=== PATIENT | male | born 1960 | race Caucasian/White ===

== ENCOUNTER 2020-09-05 16:24 | Inpatient (IN) | payer BC ==
[2020-09-05] VITALS (12 sets, daily range): BP systolic 97–142; BP diastolic 45–69
[~2020-09-05] VITALS: Ht 177.8 cm; Wt 113.6 kg
[~2020-09-05 16:24] MED LIST: MORPHINE SULFATE 4 MG/ML VIAL. IV PRN
[2020-09-05] MEDS ORDERED: ONDANSETRON PF 4 MG/2 ML VIAL. IVP ONE (16:45)
[2020-09-05] MEDS ORDERED: ASPIRIN 325 MG TABLET PO ONE (16:45)
[2020-09-05] MEDS ORDERED: MORPHINE SULFATE 4 MG/ML VIAL. IV ONE (16:45)
[2020-09-05] MEDS ORDERED: HEPARIN for IV BOLUS 10,000 UNIT/10 ML VIAL. IV ONE ×2 (16:45→18:15)
[2020-09-05 16:52] LABS: BASO % 0 % (0-3); EOS # 0.4 x10^3/uL (0.0-0.7); EOS % 4 % (0-3); HEMATOCRIT 45.4 % (39.0-53.0); HEMOGLOBIN 15.2 g/dL (13.0-17.5); LYMPH # 2.4 x10^3/uL (1.0-4.8); LYMPH % 22 % (24-48); MEAN CORPUSCULAR HEMOGLOBIN 31 pg (25-35); MEAN CORPUSCULAR HGB CONC 33 g/dL (31-37); MEAN CORPUSCULAR VOLUME 93 fL (79-100); MONO # 0.8 x10^3/uL (0.0-1.1); MONO % 7 % (0-9); NEUT # 7.6 x10^3/uL (1.8-7.7); NEUT % 68 % (31-73); PLATELET COUNT 234 x10^3/uL (140-400); RED BLOOD COUNT 4.91 x10^6/uL (4.30-5.70); RED CELL DISTRIBUTION WIDTH 13.4 % (11.5-14.5); WHITE BLOOD COUNT 11.2 x10^3/uL (4.0-11.0)
--- NOTE | 2020-09-05 16:55 | PHYS DOC ---
Past Medical History Past Medical History: High Cholesterol, Other Additional Past Medical Histor: PSORIASIS Past Surgical History: No Surgical History Smoking Status: Current Every Day Smoker Alcohol Use: Rarely General Adult EDM: Chief Complaint: CHEST PAIN HPI: HPI: Patient is a 60 year old male who arrives with chief complaint of chest pain. Patient has had "indigestion" for last couple days. Today around 2:30 the pain got more severe. Patient had episodes of diaphoresis and chest heaviness that radiates to his arm. Patient had associated nausea with shortness of breath. Pain is described as a pressure and heaviness and currently 7 out of 10 in severity. Patient's was diagnosed with COVID-19 a few days ago the patient had some myalgias and back pain and has a chronic cough. Patient states he felt like he may have had a fever earlier today when he was having diaphoresis. Review of Systems: Review of Systems: Constitutional: Reports possible fever earlier today Eyes: Denies change in visual acuity. [] HENT: Has had some mild congestion Respiratory: Patient has some chronic cough and worsening shortness of breath today Cardiovascular: Patient complains of chest pain but no edema. [] GI: Denies abdominal pain, , bloody stools or diarrhea. [] Patient's had nausea today : Denies dysuria. [] Musculoskeletal: Patient complains of back pain Integument: Denies rash. [] Neurologic: Denies headache, focal weakness or sensory changes. [] Endocrine: Denies polyuria or polydipsia. [] Lymphatic: Denies swollen glands. [] Psychiatric: Denies depression or anxiety. [] Heart Score: HEART Score for Chest Pain: HEART Score for Chest Pain Response (Comments) Value History Highly Suspicious [address] Depression 2 Age >45 - < 65 1 Risk Factors 1 or 2 Risk Factors 1 Troponin >1-<3x Normal Limit 1 Total 7 Risk Factors: Risk Factors: DM, Current or recent (<one month) smoker, HTN, HLP, family history of CAD, obesity. Risk Scores: Score 0 - 3: 2.5% MACE over next 6 weeks - Discharge Home Score 4 - 6: 20.3% MACE over next 6 weeks - Admit for Clinical Observation Score 7 - 10: 72.7% MACE over next 6 weeks - Early Invasive Strategies Current Medications: Current Medications Medications (Trade) Dose Ordered Sig/Sameera Start Time Stop Time Status Last Admin Dose Admin Aspirin (Sunitha Aspirin) 325 mg 1X ONCE 09/05/20 16:45 09/05/20 16:46 DC Heparin Sodium (Porcine) (Heparin Sodium) 4,000 unit 1X ONCE 09/05/20 16:45 09/05/20 16:46 DC Morphine Sulfate (Morphine Sulfate) 4 mg 1X ONCE 09/05/20 16:45 09/05/20 16:46 DC Ondansetron HCl (Zofran) 4 mg 1X ONCE 09/05/20 16:45 09/05/20 16:46 DC Allergies: Allergies: Allergies Coded Allergies Type Severity Reaction Last Updated Verified No Known Drug Allergies 09/05/20 No Physical Exam: PE: Constitutional: Well developed, well nourished, mild distress HENT: Normocephalic, atraumatic, bilateral external ears normal, oropharynx moist, no oral exudates, nose normal. [] Eyes: PERRLA, EOMI, conjunctiva normal, no discharge. [] Neck: Normal range of motion, no tenderness, supple, no stridor. [] Cardiovascular: Bradycardic peripheral pulses are symmetric, cap refills less than 2 seconds Lungs & Thorax: Diminished breath sounds bilaterally Abdomen:, soft, no tenderness, no masses, no pulsatile masses. [] Skin: Mildly pale slight diaphoresis, psoriatic lesions of bilateral knees Back: No tenderness, no CVA tenderness. [] Extremities: No tenderness, no cyanosis, no clubbing, ROM intact, no edema. [] Neurologic: Alert and oriented X 3, normal motor function, normal sensory function, no focal deficits noted. [] Psychologic: Affect normal, judgement normal, mood normal. [] Current Patient Data: Labs: Laboratory Tests Test 09/05/20 16:40 09/05/20 16:46 White Blood Count 11.2 x10^3/uL Red Blood Count 4.91 x10^6/uL Hemoglobin 15.2 g/dL Hematocrit 45.4 % Mean Corpuscular Volume 93 fL Mean Corpuscular Hemoglobin 31 pg Mean Corpuscular Hemoglobin Concent 33 g/dL Red Cell Distribution Width 13.4 % Platelet Count 234 x10^3/uL Neutrophils (%) (Auto) 68 % Lymphocytes (%) (Auto) 22 % Monocytes (%) (Auto) 7 % Eosinophils (%) (Auto) 4 % Basophils (%) (Auto) 0 % Neutrophils # (Auto) 7.6 x10^3/uL Lymphocytes # (Auto) 2.4 x10^3/uL Monocytes # (Auto) 0.8 x10^3/uL Eosinophils # (Auto) 0.4 x10^3/uL Basophils # (Auto) 0.0 x10^3/uL Prothrombin Time 12.5 SEC Prothromb Time International Ratio 1.0 Activated Partial Thromboplast Time 29 SEC Sodium Level 140 mmol/L Potassium Level 4.0 mmol/L Chloride Level 104 mmol/L Carbon Dioxide Level 28 mmol/L Anion Gap 8 Blood Urea Nitrogen 19 mg/dL Creatinine 0.9 mg/dL Estimated GFR (Cockcroft-Gault) 85.5 BUN/Creatinine Ratio 21 Glucose Level 125 mg/dL Calcium Level 9.2 mg/dL Total Bilirubin 0.3 mg/dL Aspartate Amino Transf (AST/SGOT) 19 U/L Alanine Aminotransferase (ALT/SGPT) 25 U/L Alkaline Phosphatase 103 U/L Troponin I Quantitative 0.091 ng/mL [id number]-[id number]-Type Natriuretic Peptide 76 pg/mL Total Protein 7.1 g/dL Albumin 3.6 g/dL Albumin/Globulin Ratio 1.0 SARS-CoV-2 Antigen (Rapid) Negative Bedside Troponin I 0.06 ng/ml Current Medications Medications (Trade) Dose Ordered Sig/Sameera Route PRN Reason Start Time Stop Time Status Last Admin Dose Admin Aspirin (Sunitha Aspirin) 325 mg 1X ONCE PO 09/05/20 16:45 09/05/20 16:46 DC 09/05/20 16:58 Heparin Sodium (Porcine) (Heparin Sodium) 4,000 unit 1X ONCE IV 09/05/20 16:45 09/05/20 16:46 DC 09/05/20 16:59 Morphine Sulfate (Morphine Sulfate) 4 mg 1X ONCE IV 09/05/20 16:45 09/05/20 17:03 DC Ondansetron HCl (Zofran) 4 mg 1X ONCE IVP 09/05/20 16:45 09/05/20 16:46 DC 09/05/20 16:58 Ondansetron HCl (Zofran) 4 mg PRN Q8HRS PRN IV NAUSEA/VOMITING 09/05/20 17:00 09/06/20 16:59 Vital Signs: Vital Signs Date Time Temp Pulse Resp B/P (MAP) Pulse Ox O2 Delivery O2 Flow Rate FiO2 09/05/20 16:32 97.8 54 16 120/65 (83) 94 Room Air 97.8 EKG: EKG: [] EKG interpreted by me sinus bradycardia with a rate of 51 normal axis wide QRS with ST elevations in anterior leads with reciprocal changes in the precordial leads consistent with inferior NH QTC of 461 Radiology/Procedures: Radiology/Procedures: [] Chest x-ray interpretation pending at time of disposition I reviewed the films follow clinically some increased interstitial markings Course & Med Decision Making: Course & Med Decision Making Pertinent Labs and Imaging studies reviewed. (See chart for details) [] 60-year-old male presents with symptoms concerning for acute myocardial infarction. EKG to me at 1638. Code STEMI activated at that time. I discussed the case with at approximately 1640 who agrees with plan. Dba Manager has been activated. Patient has aspirin and heparin bolus ordered. 5:06 PM I notified the patient's blood pressures in the 70s, a liter of normal saline boluses been ordered for his inferior NH. 60-year-old male presents with chest pain and EKG consistent with myocardial infarction. STEMI was activated. Patient also has some Covid symptoms with a known Covid exposures weeks ago. A stat Covid has been ordered. I discussed the case with Dr. Jim who will admit patient Critical care time was [35] minutes exclusive of procedures. Critical care time was [35] minutes which includes time at bedside, spent in discussion of patient's care with specialist and/or family members, with interpretation of laboratory and/or radiological studies and is exclusive of procedures. Critical condition: Inferior STEMI Critical interventions: Aspirin, activation Dba Manager, heparin, admission to the ICU 5:12 PM: Dr. Rodriguez in the ER for evaluation 5:20 PM: Dba Manager in the ER to take patient. Zuri Disclaimer: Zuri Disclaimer: This electronic medical record was generated, in whole or in part, using a voice recognition dictation system. Departure Departure Impression: Primary Impression: ST elevation myocardial infarction (STEMI) of inferior wall Additional Impressions: Chest pain Suspected COVID-19 virus infection Disposition: ADMITTED INPT THIS HOSP Admitting Physician: CHARLETTE wilkins) Condition: CRITICAL TYLER WILLS MD Sep 05, 2020 16:55
[2020-09-05 16:59] LABS: CALCIUM 9.2 mg/dL (8.5-10.1); CREATININE 0.9 mg/dL (0.7-1.3); GFR 85.5
[2020-09-05 17:00] LABS: PROTHROMBIN TIME PATIENT 12.5 SEC (11.7-14.0)
[2020-09-05] MEDS ORDERED: ONDANSETRON PF 4 MG/2 ML VIAL. IV PRN (17:00)
[2020-09-05 17:04] LABS: ALBUMIN 3.6 g/dL (3.4-5.0); TOTAL BILIRUBIN 0.3 mg/dL (0.2-1.0); TOTAL PROTEIN 7.1 g/dL (6.4-8.2)
[2020-09-05] MEDS ORDERED: LIDOCAINE 1% PF 2 ML VIAL. ONE (17:07)
[2020-09-05] MEDS ORDERED: IODIXANOL 320 MG/ML 100 ML VIAL. ONE ×2 (17:07→17:59)
[2020-09-05] MEDS ORDERED: HEPARIN for ARTERIAL LINE 1,500 ML ONE (17:07)
[2020-09-05] MEDS ORDERED: TIROFIBAN 5MG -0.9% NS 100 ML IV ONE (17:12)
[2020-09-05] MEDS ORDERED: MIDAZOLAM HCL/PF 2 MG/2 ML VIAL. ONE (17:12)
[2020-09-05] MEDS ORDERED: fentaNYL PF VIAL 100 MCG/2 ML VIAL ONE (17:12)
[2020-09-05] MEDS ORDERED: VERAPAMIL 5 MG/2 ML VIAL. ONE (17:13)
[2020-09-05] MEDS ORDERED: NITROGLYCERIN 200 MCG/2 ML SYRINGE FOR CATH/VASC LAB. ONE ×2 (17:13→18:01)
[2020-09-05] MEDS ORDERED: HEPARIN for IV BOLUS 10,000 UNIT/10 ML VIAL. ONE (17:13)
[2020-09-05] MEDS ORDERED: IV NORMAL SALINE 1000ML BAG 1,000 ML IV ONE (17:15)
[2020-09-05] MEDS ORDERED: fentaNYL PF VIAL 100 MCG/2 ML VIAL IVP ONE (17:15)
[2020-09-05] MEDS ORDERED: ATROPINE 0.5 MG/5 ML DISP.SYRINGE. ONE ×2 (17:36→18:00)
[2020-09-05] MEDS ORDERED: PHENYLEPHRINE in 0.9% NACL PF 1 MG/10 ML SYRINGE. IV ONE ×2 (17:36→18:00)
--- NOTE | 2020-09-05 17:50 | RAD ---
Exam: Chest one view INDICATION: Covid, STEMI TECHNIQUE: Frontal view of the chest Comparisons: None FINDINGS: Heart is mildly enlarged. Pulmonary vessels are within normal limits. Hazy opacities lungs bilaterally. No pleural effusion. IMPRESSION: Findings which may relate to mild pulmonary edema or atypical infectious process. Electronically signed by: Ryan Washington MD (09/05/2020 5:48 PM) HELEN
[2020-09-05] MEDS ORDERED: ATROPINE 0.5 MG/5 ML DISP.SYRINGE. IV ONE (18:00)
[2020-09-05] MEDS ORDERED: PRASUGREL 10 MG TABLET. PO ONE (18:00)
[2020-09-05] MEDS ORDERED: PRASUGREL 10 MG TABLET. ONE (18:00)
[2020-09-05] MEDS ORDERED: VERAPAMIL 5 MG/2 ML VIAL. IART ONE (18:00)
[2020-09-05] MEDS ORDERED: MIDAZOLAM HCL/PF 2 MG/2 ML VIAL. IV ONE (18:00)
[2020-09-05] MEDS ORDERED: NITROGLYCERIN 200 MCG/2 ML SYRINGE FOR CATH/VASC LAB. ICAR ONE (18:00)
[2020-09-05] MEDS ORDERED: fentaNYL PF VIAL 100 MCG/2 ML VIAL IV ONE (18:00)
[2020-09-05] MEDS ORDERED: HEPARIN for IV BOLUS 10,000 UNIT/10 ML VIAL. IART ONE (18:00)
[2020-09-05] MEDS ORDERED: LIDOCAINE 1% PF 2 ML VIAL. INJ ONE (18:00)
[2020-09-05] MEDS ORDERED: NITROGLYCERIN 200 MCG/2 ML SYRINGE FOR CATH/VASC LAB. IART ONE (18:00)
--- NOTE | 2020-09-05 18:32 | NUR ---
Report from Gisella in laboratory phlebotomist. Patient had distal RCA occlusion which was stented. 0.5mg atropine given in laboratory phlebotomist for low HR and neosynephrine given for low BP. Dopamine gtt infusin at 5 mcg. Aggrastat started in laboratory phlebotomist at 1745 running at 19.5 and will run for 18 hours. R Wrist TR band in place with 9 mls fluid; hemostatis obtained at 1745.
[2020-09-05] MEDS: TIROFIBAN 5MG -0.9% NS 100 ML IV PRN ×2 (18:37→19:15)
--- NOTE | 2020-09-05 18:38 | PDOC2 ---
CARDIOLOGY CONSULT NOTE DATE OF SERVICE: DATE: 09/05/20 TIME: 18:33 CHIEF COMPLAINT: Chest pain HPI: 60-year-old male with a prior history of hypertension, tobacco abuse, obesity who presents to the hospital in the setting of worsening epigastric pain. Initial EKG revealed significant ST elevations and therefore the cardiac catheterization team was activated. Prior to presenting to the hospital the patient was in his usual state of health. No other prior cardiac history. PMHX: As noted above SOCHX: Positive for tobacco abuse. He is . 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 FAMHX: Noncontributory CURRENT MEDS: Current Medications Medications (Trade) Dose Ordered Sig/Sameera Route PRN Reason Start Time Stop Time Status Last Admin Dose Admin Aspirin (Sunitha Aspirin) 325 mg 1X ONCE PO 09/05/20 16:45 09/05/20 16:46 DC 09/05/20 16:58 Heparin Sodium (Porcine) (Heparin Sodium) 4,000 unit 1X ONCE IV 09/05/20 16:45 09/05/20 16:46 DC 09/05/20 16:59 Ondansetron HCl (Zofran) 4 mg 1X ONCE IVP 09/05/20 16:45 09/05/20 16:46 DC 09/05/20 16:58 Sodium Chloride 1,000 ml @ 1,000 mls/hr 1X ONCE IV 09/05/20 17:15 09/05/20 18:14 DC 09/05/20 17:05 ALLERGIES: Allergies Coded Allergies Type Severity Reaction Last Updated Verified No Known Drug Allergies 09/05/20 No ROS: Negative unless otherwise mentioned above in HPI PHYSICAL EXAM: Vital Signs/I&O: Vital Signs Date Time Temp Pulse Resp B/P (MAP) Pulse Ox O2 Delivery O2 Flow Rate FiO2 09/05/20 17:18 44 121/61 (81) 99 Nasal Cannula 4.0 09/05/20 17:04 11 09/05/20 16:32 97.8 97.8 Physical Exam: The patient appeared well nourished and normally developed. Head exam is unremarkable. No scleral icterus or corneal arcus noted. Neck is without jugular venous distension, thyromegaly, or carotid bruits. Carotid upstrokes are brisk bilaterally. Lungs are clear to auscultation and percussion. Cardiac exam reveals the PMI to be normally sized and situated. Rhythm is regular. First and second heart sounds normal. No murmurs, rubs or gallops. Abdominal exam reveals normal bowel sounds, no masses, no organomegaly and no aortic enlargement. Extremities are nonedematous and both femoral and pedal pulses are normal. Msk: No traumua Neuro: No focal deficits DIAGNOSTIC TESTING: EKG revealed [address] segment elevation Cardiac enzymes were within normal limits Initial rapid Covid test was negative Hemoglobin, platelets, creatinine within normal limits Chest x-ray is notable for bilateral hazy infiltrates Cardiac catheterization demonstrated two-vessel coronary artery disease with the culprit lesion being the 100% occlusion of the distal RCA. He underwent succ essful PCI. LV systolic function approximately 45% with basal and diaphragmatic inferior wall akinesis. ASSESSMENT: 1. Inferior posterior STEMI 2. Hypertension 3. Tobacco abuse PLAN: 1. Patient underwent successful primary PCI of the distal RCA with implantation of a 5.0 x 22 mm resolute drug-eluting stent. 2. Continue aspirin 81 mg daily, prasugrel 10 mg daily, atorvastatin 40 mg daily and blood pressure management as necessary. 3. Cardiac rehab referral will be made. 4. Await Covid PCR testing. Admit to ICU monitor for next 36 hours. Case discussed with family. Thank you for this consultation. HUGO GALLEGOS MD Sep 05, 2020 18:38
--- NOTE | 2020-09-05 18:41 | PDOC1 ---
History and Physical Date of Service: DOS: DATE: 09/05/20 TIME: 18:38 Chief Complaint: Chief Complain: chest pain History of Present Illness: HPI: Patient is a 60-year-old male with no significant past medical history who presents with chest pain. He actually describes the chest pain as indigestion for the last couple days and today around 230 it got more severe. Associated symptoms included diaphoresis and chest pressure that radiated to the arm associated with nausea and some shortness of breath. Pain is 7 out of 10 in severity. 5:12 PM: Dr. Rodriguez in the ER for evaluation 5:20 PM: Emergency Room Clinician in the ER to take patient. Past Medical/Surgical History: PMH/PSH: Past Medical History: High Cholesterol, PSORIASIS Past Surgical History: None Allergies: Allergies: Coded Allergies: No Known Drug Allergies (Unverified , 09/05/20) Family History: Family History: Reviewed and no relevant findings Social History: Social History: Smoking Status: Current Every Day Smoker Alcohol Use: Rarely Current Medications: Current Medications Current Medications Aspirin (Sunitha Aspirin) 325 mg 1X ONCE PO Last administered on 09/05/20at 16:58; Start 09/05/20 at 16:45; Stop 09/05/20 at 16:46; Status DC Heparin Sodium (Porcine) (Heparin Sodium) 4,000 unit 1X ONCE IV Last administered on 09/05/20at 16:59; Start 09/05/20 at 16:45; Stop 09/05/20 at 16:46; Status DC Morphine Sulfate (Morphine Sulfate) 4 mg 1X ONCE IV ; Start 09/05/20 at 16:45; Stop 09/05/20 at 17:03; Status DC Ondansetron HCl (Zofran) 4 mg 1X ONCE IVP Last administered on 09/05/20at 16:58; Start 09/05/20 at 16:45; Stop 09/05/20 at 16:46; Status DC Ondansetron HCl (Zofran) 4 mg PRN Q8HRS PRN IV NAUSEA/VOMITING; Start 09/05/20 at 17:00; Stop 09/06/20 at 16:59 Fentanyl Citrate (Fentanyl 2ml Vial) 50 mcg 1X ONCE IVP ; Start 09/05/20 at 17:15; Stop 09/05/20 at 17:16; Status DC Iodixanol (Visipaque 320) 100 ml STK-MED ONCE .ROUTE ; Start 09/05/20 at 17:07; Stop 09/05/20 at 17:07; Status DC Lidocaine HCl (Xylocaine-Mpf 1% 2ml Vial) 2 ml STK-MED ONCE .ROUTE ; Start 09/05/20 at 17:07; Stop 09/05/20 at 17:07; Status DC Sodium Chloride 1,000 ml @ 1,000 mls/hr 1X ONCE IV Last administered on 09/05/20at 17:05; Start 09/05/20 at 17:15; Stop 09/05/20 at 18:14; Status DC Heparin Sodium/ Sodium Chloride 1,500 ml @ As Directed STK-MED ONCE .ROUTE ; Start 09/05/20 at 17:07; Stop 09/05/20 at 17:07; Status DC Fentanyl Citrate (Fentanyl 2ml Vial) 100 mcg STK-MED ONCE .ROUTE ; Start 09/05/20 at 17:12; Stop 09/05/20 at 17:12; Status DC Midazolam HCl (Versed) 2 mg STK-MED ONCE .ROUTE ; Start 09/05/20 at 17:12; Stop 09/05/20 at 17:13; Status DC Tirofiban/Sodium Chloride 100 ml @ As Directed STK-MED ONCE IV ; Start 09/05/20 at 17:12; Stop 09/05/20 at 17:13; Status DC Heparin Sodium (Porcine) (Heparin Sodium) 10,000 unit STK-MED ONCE .ROUTE ; Start 09/05/20 at 17:13; Stop 09/05/20 at 17:13; Status DC Verapamil HCl (Verapamil) 5 mg STK-MED ONCE .ROUTE ; Start 09/05/20 at 17:13; Stop 09/05/20 at 17:14; Status DC Nitroglycerin (Nitroglycerin) 200 mcg STK-MED ONCE .ROUTE ; Start 09/05/20 at 17:13; Stop 09/05/20 at 17:14; Status DC Phenylephrine HCl (PHENYLEPHRINE in 0.9% NACL PF) 1 mg STK-MED ONCE IV ; Start 09/05/20 at 17:36; Stop 09/05/20 at 17:36; Status DC Atropine Sulfate (ATROPINE 0.5mg SYRINGE) 0.5 mg STK-MED ONCE .ROUTE ; Start 09/05/20 at 17:36; Stop 09/05/20 at 17:36; Status DC Nitroglycerin (Nitroglycerin) 200 mcg 1X ONCE IART ; Start 09/05/20 at 18:00; Stop 09/05/20 at 18:04; Status DC Verapamil HCl (Verapamil) 2.5 mg 1X ONCE IART ; Start 09/05/20 at 18:00; Stop 09/05/20 at 18:04; Status DC Heparin Sodium (Porcine) (Heparin Sodium) 2,500 unit 1X ONCE IART ; Start 09/05/20 at 18:00; Stop 09/05/20 at 18:04; Status DC Heparin Sodium/ Sodium Chloride (HEPARIN for ARTERIAL LINE FLUSH) 1,000 unit 1X ONCE IART ; Start 09/05/20 at 18:00; Stop 09/05/20 at 18:04; Status DC Heparin Sodium/ Sodium Chloride (HEPARIN for ARTERIAL LINE FLUSH) 1,000 unit 1X ONCE IART ; Start 09/05/20 at 18:00; Stop 09/05/20 at 18:04; Status DC Midazolam HCl (Versed) 2 mg 1X ONCE IV ; Start 09/05/20 at 18:00; Stop 09/05/20 at 18:04; Status DC Fentanyl Citrate (Fentanyl 2ml Vial) 100 mcg 1X ONCE IV ; Start 09/05/20 at 18:00; Stop 09/05/20 at 18:04; Status DC Atropine Sulfate (ATROPINE 0.5mg SYRINGE) 0.5 mg 1X ONCE IV ; Start 09/05/20 at 18:00; Stop 09/05/20 at 18:04; Status DC Phenylephrine HCl (PHENYLEPHRINE in 0.9% NACL PF) 0.1 mg 1X ONCE IV ; Start 09/05/20 at 18:00; Stop 09/05/20 at 18:04; Status DC Tirofiban/Sodium Chloride 100 ml @ 0 mls/hr CONT PRN IV PER PROTOCOL; Start 09/05/20 at 18:00; Stop 09/06/20 at 11:59 Lidocaine HCl (Xylocaine-Mpf 1% 2ml Vial) 2 ml 1X ONCE INJ ; Start 09/05/20 at 18:00; Stop 09/05/20 at 18:04; Status DC Iodixanol (Visipaque 320) 100 ml STK-MED ONCE .ROUTE ; Start 09/05/20 at 17:59; Stop 09/05/20 at 17:59; Status DC Prasugrel (Effient) 10 mg STK-MED ONCE .ROUTE ; Start 09/05/20 at 18:00; Stop 09/05/20 at 18:00; Status DC Nitroglycerin (Nitroglycerin) 200 mcg 1X ONCE ICAR ; Start 09/05/20 at 18:00; Stop 09/05/20 at 18:06; Status DC Prasugrel (Effient) 60 mg 1X ONCE PO ; Start 09/05/20 at 18:00; Stop 09/05/20 at 18:06; Status DC Nitroglycerin (Nitroglycerin) 200 mcg STK-MED ONCE .ROUTE ; Start 09/05/20 at 18:01; Stop 09/05/20 at 18:02; Status DC Dopamine HCl/ Dextrose 250 ml @ As Directed STK-MED ONCE IV ; Start 09/05/20 at 18:15; Stop 09/05/20 at 18:15; Status DC Dopamine HCl/ Dextrose 250 ml @ 20.363 mls/ hr CONT PRN IV SEE I/O RECORD; Start 09/05/20 at 18:30 ROS: Review of Systems Review of System REVIEW OF SYSTEMS: GENERAL: Denies weakness SKIN: No bruising, hair changes or rashes. EYES: No blurred, double or loss of vision. NOSE AND THROAT: No history of nosebleeds, hoarseness or sore throat. HEART: No history of palpitations, chest pain or shortness of breath on exertion. LUNGS: Denies cough, hemoptysis, wheezing or shortness of breath. GASTROINTESTINAL: Denies changes in appetite, nausea, vomiting, diarrhea or constipation. GENITOURINARY: No history of frequency, urgency, hesitancy or nocturia. NEUROLOGIC: Denies history of numbness, tingling, or tremor. PSYCHIATRIC: No history of panic, anxiety or depression. ENDOCRINE: No history of heat or cold intolerance, polyuria or polydipsia. EXTREMITIES: Denies joint pain, pain on walking or stiffness. Physical Exam: Vital Signs: Vital Signs Date Time Temp Pulse Resp B/P (MAP) Pulse Ox O2 Delivery O2 Flow Rate FiO2 09/05/20 17:18 44 121/61 (81) 99 Nasal Cannula 4.0 09/05/20 17:04 11 09/05/20 16:32 97.8 97.8 Physcial Exam: GEN: No apparent distress. Alert and oriented HEENT: Normal cephalic, atraumatic, external auditory canals are patent EYES: Extraocular muscles are intact, pupil are equally round and reactive to light and accommodation MUSCULOSKELETAL: Well developed , well nourished, good range of motion ENDOCRINE: No thyromegaly was palpated LYMPHATICS: No cervical chain or axillary nodes were noted HEMATOPOIETIC: No bruising NECK: Supple, no JVD, no thyromegaly was noted LUNGS: Clear to auscultation in all lung wood without rhonchi or wheezing HEART: RRR, S!, S2 present. Peripheral pulses intact, no obvious murmurs noted ABDOMEN: Soft, nontender. Positive bowel sounds, no organomegaly, normal bowel sounds EXTREMITIES: Without clubbing, cyanosis, or edema. Pedal pulses intact. Negative Homans sign NEUROLOGIC: Normal speech and tone. A&O x 3, moves all extremities, no obvious focal deficits PSYCHIATRIC: Normal affect, normal mood. Stable SKIN: No ulcerations or rashes, good skin turgor, no jaundice VASCULAR: Good capillary refill, neurovascular bundle appears to be intact Labs: Labs: Laboratory Tests Test 09/05/20 16:40 09/05/20 16:46 White Blood Count 11.2 x10^3/uL (4.0-11.0) Red Blood Count 4.91 x10^6/uL (4.30-5.70) Hemoglobin 15.2 g/dL (13.0-17.5) Hematocrit 45.4 % (39.0-53.0) Mean Corpuscular Volume 93 fL (79-100) Mean Corpuscular Hemoglobin 31 pg (25-35) Mean Corpuscular Hemoglobin Concent 33 g/dL (31-37) Red Cell Distribution Width 13.4 % (11.5-14.5) Platelet Count 234 x10^3/uL (140-400) Neutrophils (%) (Auto) 68 % (31-73) Lymphocytes (%) (Auto) 22 % (24-48) Monocytes (%) (Auto) 7 % (0-9) Eosinophils (%) (Auto) 4 % (0-3) Basophils (%) (Auto) 0 % (0-3) Neutrophils # (Auto) 7.6 x10^3/uL (1.8-7.7) Lymphocytes # (Auto) 2.4 x10^3/uL (1.0-4.8) Monocytes # (Auto) 0.8 x10^3/uL (0.0-1.1) Eosinophils # (Auto) 0.4 x10^3/uL (0.0-0.7) Basophils # (Auto) 0.0 x10^3/uL (0.0-0.2) Prothrombin Time 12.5 SEC (11.7-14.0) Prothromb Time International Ratio 1.0 (0.8-1.1) Activated Partial Thromboplast Time 29 SEC (24-38) Sodium Level 140 mmol/L (136-145) Potassium Level 4.0 mmol/L (3.5-5.1) Chloride Level 104 mmol/L (98-107) Carbon Dioxide Level 28 mmol/L (21-32) Anion Gap 8 (6-14) Blood Urea Nitrogen 19 mg/dL (8-26) Creatinine 0.9 mg/dL (0.7-1.3) Estimated GFR (Cockcroft-Gault) 85.5 BUN/Creatinine Ratio 21 (6-20) Glucose Level 125 mg/dL (70-99) Calcium Level 9.2 mg/dL (8.5-10.1) Total Bilirubin 0.3 mg/dL (0.2-1.0) Aspartate Amino Transf (AST/SGOT) 19 U/L (15-37) Alanine Aminotransferase (ALT/SGPT) 25 U/L (16-63) Alkaline Phosphatase 103 U/L (46-116) Troponin I Quantitative 0.091 ng/mL (0.000-0.055) SQ-Jhk-D-Type Natriuretic Peptide 76 pg/mL (0-124) Total Protein 7.1 g/dL (6.4-8.2) Albumin 3.6 g/dL (3.4-5.0) Albumin/Globulin Ratio 1.0 (1.0-1.7) SARS-CoV-2 Antigen (Rapid) Negative (NEGATIVE) Bedside Troponin I 0.06 ng/ml (<0.08) Laboratory Tests Test 09/05/20 16:40 09/05/20 16:46 White Blood Count 11.2 x10^3/uL (4.0-11.0) Red Blood Count 4.91 x10^6/uL (4.30-5.70) Hemoglobin 15.2 g/dL (13.0-17.5) Hematocrit 45.4 % (39.0-53.0) Mean Corpuscular Volume 93 fL (79-100) Mean Corpuscular Hemoglobin 31 pg (25-35) Mean Corpuscular Hemoglobin Concent 33 g/dL (31-37) Red Cell Distribution Width 13.4 % (11.5-14.5) Platelet Count 234 x10^3/uL (140-400) Neutrophils (%) (Auto) 68 % (31-73) Lymphocytes (%) (Auto) 22 % (24-48) Monocytes (%) (Auto) 7 % (0-9) Eosinophils (%) (Auto) 4 % (0-3) Basophils (%) (Auto) 0 % (0-3) Neutrophils # (Auto) 7.6 x10^3/uL (1.8-7.7) Lymphocytes # (Auto) 2.4 x10^3/uL (1.0-4.8) Monocytes # (Auto) 0.8 x10^3/uL (0.0-1.1) Eosinophils # (Auto) 0.4 x10^3/uL (0.0-0.7) Basophils # (Auto) 0.0 x10^3/uL (0.0-0.2) Prothrombin Time 12.5 SEC (11.7-14.0) Prothromb Time International Ratio 1.0 (0.8-1.1) Activated Partial Thromboplast Time 29 SEC (24-38) Sodium Level 140 mmol/L (136-145) Potassium Level 4.0 mmol/L (3.5-5.1) Chloride Level 104 mmol/L (98-107) Carbon Dioxide Level 28 mmol/L (21-32) Anion Gap 8 (6-14) Blood Urea Nitrogen 19 mg/dL (8-26) Creatinine 0.9 mg/dL (0.7-1.3) Estimated GFR (Cockcroft-Gault) 85.5 BUN/Creatinine Ratio 21 (6-20) Glucose Level 125 mg/dL (70-99) Calcium Level 9.2 mg/dL (8.5-10.1) Total Bilirubin 0.3 mg/dL (0.2-1.0) Aspartate Amino Transf (AST/SGOT) 19 U/L (15-37) Alanine Aminotransferase (ALT/SGPT) 25 U/L (16-63) Alkaline Phosphatase 103 U/L (46-116) Troponin I Quantitative 0.091 ng/mL (0.000-0.055) QZ-Oxz-W-Type Natriuretic Peptide 76 pg/mL (0-124) Total Protein 7.1 g/dL (6.4-8.2) Albumin 3.6 g/dL (3.4-5.0) Albumin/Globulin Ratio 1.0 (1.0-1.7) SARS-CoV-2 Antigen (Rapid) Negative (NEGATIVE) Bedside Troponin I 0.06 ng/ml (<0.08) Images: Images IMPRESSION: Findings which may relate to mild pulmonary edema or atypical infectious process. Assessment/Plan Assessment/Plan Chest pain concerning for STEMI status post left heart cath with drug-eluting stent placed in the distal RCA Admit to ICU for observation status post left heart cath EKG showing acute ST elevations Troponin 0.091 Continue aspirin, and heparin drip Cardiology consulted for left heart cath Continue nitroglycerin as needed for pain Continue beta-adelina if blood pressures allow Continue high intensity statins IV morphine as needed Maintain O2 sats between 88 to 95% Trend troponins Repeat EKG in the a.m. Continue telemetry monitoring Monitor for electrolyte abnormalities Avoid NSAIDs Heparin drip for DVT prophylaxis Protonix GI prophylaxis ADA diet Full code Discussed with RN and SW Disposition ICU care Surrogate decision maker is the A total of 50 minutes of critical care time was spent in reviewing chart, labs, and images. Discussed with RN and SW. Justifications for Admission Other Justification ALEJANDRO CLEMONS MD Sep 05, 2020 18:41
[2020-09-05] MEDS ORDERED: ONDANSETRON PF 4 MG/2 ML VIAL. ONE (18:44)
[2020-09-05] MEDS ORDERED: NITROGLYCERIN SUBLINGUAL 0.4 MG BOTTLE OF 25. SL PRN ×2 (18:45→19:30)
[2020-09-05] MEDS ORDERED: ATROPINE 0.5 MG/5 ML DISP.SYRINGE. IV PRN (18:45)
[2020-09-05] MEDS ORDERED: AMIODARONE 150 MG in IV DEXTROSE 5% 100ML 100 ML IV PRN (18:45)
[2020-09-05] MEDS ORDERED: LIDOCAINE 2% 100 MG/5 ML SYRINGE. IV PRN (18:45)
[2020-09-05] MEDS ORDERED: ACETAMINOPHEN 325 MG TABLET. PO PRN ×2 (18:45→19:30)
[2020-09-05] MEDS ORDERED: fentaNYL PF VIAL 100 MCG/2 ML VIAL IV PRN (18:45)
[2020-09-05] MEDS ORDERED: 0.9 % SODIUM CHLORIDE 10 ML DISP.SYRIN. IV PRN (18:45)
--- NOTE | 2020-09-05 19:20 | NUR ---
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 Vitals stable, at bedside. POC was reviewed with patient and . Personal belongings left in room, will continue to monitor.
[2020-09-05] MEDS ORDERED: DEXTROSE 50% 25 GM / 50ML DISP.SYRIN. IV PRN (19:30)
[2020-09-05] MEDS ORDERED: MORPHINE SULFATE 2 MG/ML VIAL. IV PRN (19:30)
[2020-09-05] MEDS ORDERED: DOCUSATE SODIUM 100 MG CAPSULE. PO PRN (19:30)
[2020-09-05] MEDS ORDERED: ONDANSETRON PF 4 MG/2 ML VIAL. IVP PRN (19:30)
[2020-09-05] MEDS ORDERED: SENNOSIDES 8.6 MG TABLET PO PRN (19:30)
[2020-09-05] MEDS: IV NORMAL SALINE 1000ML BAG 1,000 ML IV SCH (19:30)
[2020-09-05] MEDS: ATORVASTATIN CALCIUM 20 MG TABLET PO SCH (20:24)
[2020-09-06] VITALS (14 sets, daily range): BP systolic 100–211; BP diastolic 50–106
[2020-09-06] MEDS: TIROFIBAN 5MG -0.9% NS 100 ML IV PRN ×2 (00:03→05:07)
--- NOTE | 2020-09-06 01:21 | EKG ---
[facility] [address] [place] [address] Test Date: 2020-09-05 Test Time: 16:36:08 Pat Name: CECILY COLMENARES Department: Room: Gender: M Rework Operator: : [id number] Requested By: TYLER WILLS Order Number: [id number] Reading MD: Measurements Intervals [place] Rate: 51 P: 63 KS: 168 QRS: 42 QRSD: 160 T: 105 QT: 498 QTc: 461 Interpretive Statements SINUS RHYTHM COMPLEX(ES) WITH ABERRANT INTRAVENTRICULAR CONDUCTION VENTRICULAR PREMATURE COMPLEX(ES) LOW LIMB LEAD VOLTAGE NON SPECIFIC INTRAVENTRICULAR BLOCK ABNORMAL ECG RI6.01 No previous ECG available for comparison
[2020-09-06] MEDS: IV NORMAL SALINE 1000ML BAG 1,000 ML IV SCH ×3 (04:14→23:01)
[2020-09-06 05:14] LABS: BASO # 0.1 x10^3/uL (0.0-0.2); BASO % 1 % (0-3); EOS # 0.1 x10^3/uL (0.0-0.7); EOS % 2 % (0-3); HEMOGLOBIN 13.7 g/dL (13.0-17.5); LYMPH # 1.6 x10^3/uL (1.0-4.8); LYMPH % 17 % (24-48); MEAN CORPUSCULAR HEMOGLOBIN 31 pg (25-35); MEAN CORPUSCULAR HGB CONC 33 g/dL (31-37); MEAN CORPUSCULAR VOLUME 93 fL (79-100); MONO # 0.8 x10^3/uL (0.0-1.1); MONO % 8 % (0-9); NEUT # 6.8 x10^3/uL (1.8-7.7); NEUT % 72 % (31-73); PLATELET COUNT 203 x10^3/uL (140-400); RED BLOOD COUNT 4.43 x10^6/uL (4.30-5.70); RED CELL DISTRIBUTION WIDTH 13.4 % (11.5-14.5); WHITE BLOOD COUNT 9.4 x10^3/uL (4.0-11.0)
[2020-09-06 05:30] LABS: CALCIUM 8.4 mg/dL (8.5-10.1); CREATININE 0.9 mg/dL (0.7-1.3); GFR 85.5; MAGNESIUM 2.1 mg/dL (1.8-2.4); PHOSPHORUS 3.7 mg/dL (2.6-4.7); POTASSIUM 4.5 mmol/L (3.5-5.1)
[2020-09-06 05:32] LABS: ALBUMIN 3.1 g/dL (3.4-5.0); DIRECT BILIRUBIN 0.1 mg/dL (0.0-0.2); TOTAL BILIRUBIN 0.4 mg/dL (0.2-1.0); TOTAL PROTEIN 6.3 g/dL (6.4-8.2)
[2020-09-06 05:33] LABS: CHOLESTEROL/HDL RATIO 6.3
[2020-09-06] MEDS ORDERED: PERFLUTREN PROTEIN-A MICROSPHR 0.22 MG/ML 3 ML VIAL. IV ONE ×2 (07:31→08:00)
[2020-09-06] MEDS: ASPIRIN ENTERIC COATED 81 MG TABLET.DR. PO SCH (08:57)
[2020-09-06] MEDS: PRASUGREL 10 MG TABLET. PO SCH (08:57)
--- NOTE | 2020-09-06 09:13 | PDOC ---
[employer] PROGRESS NOTE Date of Service DOS: DATE: 09/06/20 TIME: 08:59 Chief Complaint Chief Complaint A/P: STEMI - infero-posterior NH s/p RCA stenting with IDRIS Acute reduced EF heart failure - due to STEMI Tobacco abuse - counseled on cessation. Psoriasis - topical treatment HLD - cont statin History of Present Illness History of Present Illness Mr Nelson is a 60-year-old male with past medical history psoriasis, HLD, smoker who presents with chest pain found with STEMI, infero-posterior. 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 Chest pain resolved, has some twinges, no SOB. Eating breakfast. He is asking for nicotine cessation. Vitals/I&O Vitals/I&O: Vital Signs Date Time Temp Pulse Resp B/P (MAP) Pulse Ox O2 Delivery O2 Flow Rate FiO2 09/06/20 06:08 57 24 143/79 (100) 92 Nasal Cannula 3.0 09/05/20 23:30 98.6 98.6 I & O 09/05/20 09/05/20 09/06/20 15:00 23:00 07:00 Intake Total 500 ml 300 ml Output Total 300 ml 400 ml Balance 200 ml -100 ml Physical Exam General: Alert, Oriented X3, Cooperative Heart: Regular rate, Normal S1, Normal S2 Lungs: Clear Abdomen: Normal bowel sounds, Soft Extremities: No clubbing, No cyanosis Labs Labs: Laboratory Tests Test 09/05/20 16:40 09/05/20 16:46 09/05/20 21:15 09/05/20 23:15 White Blood Count 11.2 x10^3/uL (4.0-11.0) Red Blood Count 4.91 x10^6/uL (4.30-5.70) Hemoglobin 15.2 g/dL (13.0-17.5) Hematocrit 45.4 % (39.0-53.0) Mean Corpuscular Volume 93 fL (79-100) Mean Corpuscular Hemoglobin 31 pg (25-35) Mean Corpuscular Hemoglobin Concent 33 g/dL (31-37) Red Cell Distribution Width 13.4 % (11.5-14.5) Platelet Count 234 x10^3/uL (140-400) Neutrophils (%) (Auto) 68 % (31-73) Lymphocytes (%) (Auto) 22 % (24-48) Monocytes (%) (Auto) 7 % (0-9) Eosinophils (%) (Auto) 4 % (0-3) Basophils (%) (Auto) 0 % (0-3) Neutrophils # (Auto) 7.6 x10^3/uL (1.8-7.7) Lymphocytes # (Auto) 2.4 x10^3/uL (1.0-4.8) Monocytes # (Auto) 0.8 x10^3/uL (0.0-1.1) Eosinophils # (Auto) 0.4 x10^3/uL (0.0-0.7) Basophils # (Auto) 0.0 x10^3/uL (0.0-0.2) Prothrombin Time 12.5 SEC (11.7-14.0) Prothromb Time International Ratio 1.0 (0.8-1.1) Activated Partial Thromboplast Time 29 SEC (24-38) Sodium Level 140 mmol/L (136-145) Potassium Level 4.0 mmol/L (3.5-5.1) Chloride Level 104 mmol/L (98-107) Carbon Dioxide Level 28 mmol/L (21-32) Anion Gap 8 (6-14) Blood Urea Nitrogen 19 mg/dL (8-26) Creatinine 0.9 mg/dL (0.7-1.3) Estimated GFR (Cockcroft-Gault) 85.5 BUN/Creatinine Ratio 21 (6-20) Glucose Level 125 mg/dL (70-99) Calcium Level 9.2 mg/dL (8.5-10.1) Total Bilirubin 0.3 mg/dL (0.2-1.0) Aspartate Amino Transf (AST/SGOT) 19 U/L (15-37) Alanine Aminotransferase (ALT/SGPT) 25 U/L (16-63) Alkaline Phosphatase 103 U/L (46-116) Troponin I Quantitative 0.091 ng/mL (0.000-0.055) 6.421 ng/mL (0.000-0.055) 16.700 ng/mL (0.000-0.055) YG-Tao-M-Type Natriuretic Peptide 76 pg/mL (0-124) Total Protein 7.1 g/dL (6.4-8.2) Albumin 3.6 g/dL (3.4-5.0) Albumin/Globulin Ratio 1.0 (1.0-1.7) SARS-CoV-2 Antigen (Rapid) Negative (NEGATIVE) Bedside Troponin I 0.06 ng/ml (<0.08) Lactic Acid Level 1.5 mmol/L (0.4-2.0) Test 09/06/20 05:00 White Blood Count 9.4 x10^3/uL (4.0-11.0) Red Blood Count 4.43 x10^6/uL (4.30-5.70) Hemoglobin 13.7 g/dL (13.0-17.5) Hematocrit 41.0 % (39.0-53.0) Mean Corpuscular Volume 93 fL (79-100) Mean Corpuscular Hemoglobin 31 pg (25-35) Mean Corpuscular Hemoglobin Concent 33 g/dL (31-37) Red Cell Distribution Width 13.4 % (11.5-14.5) Platelet Count 203 x10^3/uL (140-400) Neutrophils (%) (Auto) 72 % (31-73) Lymphocytes (%) (Auto) 17 % (24-48) Monocytes (%) (Auto) 8 % (0-9) Eosinophils (%) (Auto) 2 % (0-3) Basophils (%) (Auto) 1 % (0-3) Neutrophils # (Auto) 6.8 x10^3/uL (1.8-7.7) Lymphocytes # (Auto) 1.6 x10^3/uL (1.0-4.8) Monocytes # (Auto) 0.8 x10^3/uL (0.0-1.1) Eosinophils # (Auto) 0.1 x10^3/uL (0.0-0.7) Basophils # (Auto) 0.1 x10^3/uL (0.0-0.2) Sodium Level 140 mmol/L (136-145) Potassium Level 4.5 mmol/L (3.5-5.1) Chloride Level 105 mmol/L (98-107) Carbon Dioxide Level 30 mmol/L (21-32) Anion Gap 5 (6-14) Blood Urea Nitrogen 17 mg/dL (8-26) Creatinine 0.9 mg/dL (0.7-1.3) Estimated GFR (Cockcroft-Gault) 85.5 Glucose Level 116 mg/dL (70-99) Calcium Level 8.4 mg/dL (8.5-10.1) Phosphorus Level 3.7 mg/dL (2.6-4.7) Magnesium Level 2.1 mg/dL (1.8-2.4) Total Bilirubin 0.4 mg/dL (0.2-1.0) Direct Bilirubin 0.1 mg/dL (0.0-0.2) Aspartate Amino Transf (AST/SGOT) 64 U/L (15-37) Alanine Aminotransferase (ALT/SGPT) 27 U/L (16-63) Alkaline Phosphatase 86 U/L (46-116) Troponin I Quantitative 21.553 ng/mL (0.000-0.055) Total Protein 6.3 g/dL (6.4-8.2) Albumin 3.1 g/dL (3.4-5.0) Triglycerides Level 130 mg/dL (0-150) Cholesterol Level 188 mg/dL (0-200) LDL Cholesterol, Calculated 132 mg/dL (0-100) VLDL Cholesterol, Calculated 26 mg/dL (0-40) Non-HDL Cholesterol Calculated 158 mg/dL (0-129) HDL Cholesterol 30 mg/dL (40-60) Cholesterol/HDL Ratio 6.3 Assessment and Plan Assessmemt and Plan Problems Medical Problems: (1) Chest pain Status: Acute (2) ST elevation myocardial infarction (STEMI) of inferior wall Status: Acute (3) Suspected COVID-19 virus infection Status: Acute Comment Review of Relevant I have reviewed the following items sharath (where applicable) has been applied. Medications: Current Medications Medications (Trade) Dose Ordered Sig/Sameera Route PRN Reason Start Time Stop Time Status Last Admin Dose Admin Aspirin (Sunitha Aspirin) 325 mg 1X ONCE PO 09/05/20 16:45 09/05/20 16:46 DC 09/05/20 16:58 Heparin Sodium (Porcine) (Heparin Sodium) 4,000 unit 1X ONCE IV 09/05/20 16:45 09/05/20 16:46 DC 09/05/20 16:59 Ondansetron HCl (Zofran) 4 mg 1X ONCE IVP 09/05/20 16:45 09/05/20 16:46 DC 09/05/20 16:58 Ondansetron HCl (Zofran) 4 mg PRN Q8HRS PRN IV NAUSEA/VOMITING 09/05/20 17:00 09/05/20 19:23 DC 09/05/20 18:44 Sodium Chloride 1,000 ml @ 1,000 mls/hr 1X ONCE IV 09/05/20 17:15 09/05/20 18:14 DC 09/05/20 17:05 Nitroglycerin (Nitroglycerin) 200 mcg 1X ONCE IART 09/05/20 18:00 09/05/20 18:04 DC 09/05/20 18:41 Verapamil HCl (Verapamil) 2.5 mg 1X ONCE IART 09/05/20 18:00 09/05/20 18:04 DC 09/05/20 18:40 Heparin Sodium (Porcine) (Heparin Sodium) 2,500 unit 1X ONCE IART 09/05/20 18:00 09/05/20 18:04 DC 09/05/20 18:42 Heparin Sodium/ Sodium Chloride (HEPARIN for ARTERIAL LINE FLUSH) 1,000 unit 1X ONCE IART 09/05/20 18:00 09/05/20 18:04 DC 09/05/20 18:37 Heparin Sodium/ Sodium Chloride (HEPARIN for ARTERIAL LINE FLUSH) 1,000 unit 1X ONCE IART 09/05/20 18:00 09/05/20 18:04 DC 09/05/20 18:37 Midazolam HCl (Versed) 2 mg 1X ONCE IV 09/05/20 18:00 09/05/20 18:04 DC 09/05/20 18:41 Fentanyl Citrate (Fentanyl 2ml Vial) 100 mcg 1X ONCE IV 09/05/20 18:00 09/05/20 18:04 DC 09/05/20 18:40 Atropine Sulfate (ATROPINE 0.5mg SYRINGE) 0.5 mg 1X ONCE IV 09/05/20 18:00 09/05/20 18:04 DC 09/05/20 18:00 Phenylephrine HCl (PHENYLEPHRINE in 0.9% NACL PF) 0.1 mg 1X ONCE IV 09/05/20 18:00 09/05/20 18:04 DC 09/05/20 18:00 Tirofiban/Sodium Chloride 100 ml @ 0 mls/hr CONT PRN IV PER PROTOCOL 09/05/20 18:00 09/06/20 11:59 09/06/20 05:07 Lidocaine HCl (Xylocaine-Mpf 1% 2ml Vial) 2 ml 1X ONCE INJ 09/05/20 18:00 09/05/20 18:04 DC 09/05/20 18:38 Nitroglycerin (Nitroglycerin) 200 mcg 1X ONCE ICAR 09/05/20 18:00 09/05/20 18:06 DC 09/05/20 18:41 Prasugrel (Effient) 60 mg 1X ONCE PO 09/05/20 18:00 09/05/20 18:06 DC 09/05/20 18:41 Dopamine HCl/ Dextrose 250 ml @ 20.363 mls/ hr CONT PRN IV SEE I/O RECORD 09/05/20 18:30 09/05/20 18:38 Aspirin (Ecotrin) 81 mg DAILYWBKFT PO 09/06/20 08:00 09/06/20 08:57 Prasugrel (Effient) 10 mg DAILYWBKFT PO 09/06/20 08:00 09/06/20 08:57 Atorvastatin Calcium (Lipitor) 40 mg QHS PO 09/05/20 21:00 09/05/20 20:24 Heparin Sodium (Porcine) (Heparin Sodium) 1,000 unit 1X ONCE IV 09/05/20 18:15 09/05/20 18:54 DC 09/05/20 18:15 Ondansetron HCl (Zofran) 4 mg PRN Q6HRS PRN IVP NAUSEA/VOMITING 09/05/20 19:30 09/05/20 19:51 Sodium Chloride 1,000 ml @ 100 mls/hr Q10H IV 09/05/20 19:30 09/06/20 04:14 Justifications for Admission Chest Pain Indications Serious Diagnosis?: Yes Justification for admission: Chest pain may be indicative of potentially serious diagnosis/diagnoses Please state condition(s) which will require inpatient level of care for further evaluation and management. Chest pain indicative of: Acute NH Other Justification CARLO SAMUELS MD Sep 06, 2020 09:13
[2020-09-06] MEDS ORDERED: NICOTINE POLACRILEX 2MG GUM PACKAGE of 12. BC PRN (09:15)
--- NOTE | 2020-09-06 10:16 | NUR ---
Nursing/transfer: Patient transferred to [address] [place] [address] room 248. All belongings with patient. Patients dropped off bag of belongings including phone supervisor volunteer services. Patient assisted off of unit via wheelchair accompanied by JUANITA Zhang on 3L oxygen.
--- NOTE | 2020-09-06 10:46 | PDOC ---
MEDINA CASTELLANO CASINO PORTER 09/06/20 1045: CARDIO Progress Notes Date and Time Date of Service 09/06/20 Time of Evaluation 1120 Subjective Subjective: No Chest Pain, No shortness of breath, No Palpitations Vitals Vitals Vital Signs Date Time Temp Pulse Resp B/P (MAP) Pulse Ox O2 Delivery O2 Flow Rate FiO2 09/06/20 09:00 62 20 126/72 (90) 95 Nasal Cannula 3.0 09/06/20 07:00 98.0 98.0 Weight Weight [ ] Input and Output Intake and Output Intake and Output 09/06/20 07:00 Intake Total 800 ml Output Total 700 ml Balance 100 ml Intake Oral 800 ml Output Urine Total 700 ml Laboratory Labs Laboratory Tests Test 09/05/20 16:40 09/05/20 16:46 09/05/20 21:15 09/05/20 23:15 White Blood Count 11.2 x10^3/uL (4.0-11.0) Red Blood Count 4.91 x10^6/uL (4.30-5.70) Hemoglobin 15.2 g/dL (13.0-17.5) Hematocrit 45.4 % (39.0-53.0) Mean Corpuscular Volume 93 fL (79-100) Mean Corpuscular Hemoglobin 31 pg (25-35) Mean Corpuscular Hemoglobin Concent 33 g/dL (31-37) Red Cell Distribution Width 13.4 % (11.5-14.5) Platelet Count 234 x10^3/uL (140-400) Neutrophils (%) (Auto) 68 % (31-73) Lymphocytes (%) (Auto) 22 % (24-48) Monocytes (%) (Auto) 7 % (0-9) Eosinophils (%) (Auto) 4 % (0-3) Basophils (%) (Auto) 0 % (0-3) Neutrophils # (Auto) 7.6 x10^3/uL (1.8-7.7) Lymphocytes # (Auto) 2.4 x10^3/uL (1.0-4.8) Monocytes # (Auto) 0.8 x10^3/uL (0.0-1.1) Eosinophils # (Auto) 0.4 x10^3/uL (0.0-0.7) Basophils # (Auto) 0.0 x10^3/uL (0.0-0.2) Prothrombin Time 12.5 SEC (11.7-14.0) Prothromb Time International Ratio 1.0 (0.8-1.1) Activated Partial Thromboplast Time 29 SEC (24-38) Sodium Level 140 mmol/L (136-145) Potassium Level 4.0 mmol/L (3.5-5.1) Chloride Level 104 mmol/L (98-107) Carbon Dioxide Level 28 mmol/L (21-32) Anion Gap 8 (6-14) Blood Urea Nitrogen 19 mg/dL (8-26) Creatinine 0.9 mg/dL (0.7-1.3) Estimated GFR (Cockcroft-Gault) 85.5 BUN/Creatinine Ratio 21 (6-20) Glucose Level 125 mg/dL (70-99) Calcium Level 9.2 mg/dL (8.5-10.1) Total Bilirubin 0.3 mg/dL (0.2-1.0) Aspartate Amino Transf (AST/SGOT) 19 U/L (15-37) Alanine Aminotransferase (ALT/SGPT) 25 U/L (16-63) Alkaline Phosphatase 103 U/L (46-116) Troponin I Quantitative 0.091 ng/mL (0.000-0.055) 6.421 ng/mL (0.000-0.055) 16.700 ng/mL (0.000-0.055) UE-Sdw-W-Type Natriuretic Peptide 76 pg/mL (0-124) Total Protein 7.1 g/dL (6.4-8.2) Albumin 3.6 g/dL (3.4-5.0) Albumin/Globulin Ratio 1.0 (1.0-1.7) SARS-CoV-2 Antigen (Rapid) Negative (NEGATIVE) Bedside Troponin I 0.06 ng/ml (<0.08) Lactic Acid Level 1.5 mmol/L (0.4-2.0) Test 09/06/20 05:00 White Blood Count 9.4 x10^3/uL (4.0-11.0) Red Blood Count 4.43 x10^6/uL (4.30-5.70) Hemoglobin 13.7 g/dL (13.0-17.5) Hematocrit 41.0 % (39.0-53.0) Mean Corpuscular Volume 93 fL (79-100) Mean Corpuscular Hemoglobin 31 pg (25-35) Mean Corpuscular Hemoglobin Concent 33 g/dL (31-37) Red Cell Distribution Width 13.4 % (11.5-14.5) Platelet Count 203 x10^3/uL (140-400) Neutrophils (%) (Auto) 72 % (31-73) Lymphocytes (%) (Auto) 17 % (24-48) Monocytes (%) (Auto) 8 % (0-9) Eosinophils (%) (Auto) 2 % (0-3) Basophils (%) (Auto) 1 % (0-3) Neutrophils # (Auto) 6.8 x10^3/uL (1.8-7.7) Lymphocytes # (Auto) 1.6 x10^3/uL (1.0-4.8) Monocytes # (Auto) 0.8 x10^3/uL (0.0-1.1) Eosinophils # (Auto) 0.1 x10^3/uL (0.0-0.7) Basophils # (Auto) 0.1 x10^3/uL (0.0-0.2) Sodium Level 140 mmol/L (136-145) Potassium Level 4.5 mmol/L (3.5-5.1) Chloride Level 105 mmol/L (98-107) Carbon Dioxide Level 30 mmol/L (21-32) Anion Gap 5 (6-14) Blood Urea Nitrogen 17 mg/dL (8-26) Creatinine 0.9 mg/dL (0.7-1.3) Estimated GFR (Cockcroft-Gault) 85.5 Glucose Level 116 mg/dL (70-99) Calcium Level 8.4 mg/dL (8.5-10.1) Phosphorus Level 3.7 mg/dL (2.6-4.7) Magnesium Level 2.1 mg/dL (1.8-2.4) Total Bilirubin 0.4 mg/dL (0.2-1.0) Direct Bilirubin 0.1 mg/dL (0.0-0.2) Aspartate Amino Transf (AST/SGOT) 64 U/L (15-37) Alanine Aminotransferase (ALT/SGPT) 27 U/L (16-63) Alkaline Phosphatase 86 U/L (46-116) Troponin I Quantitative 21.553 ng/mL (0.000-0.055) Total Protein 6.3 g/dL (6.4-8.2) Albumin 3.1 g/dL (3.4-5.0) Triglycerides Level 130 mg/dL (0-150) Cholesterol Level 188 mg/dL (0-200) LDL Cholesterol, Calculated 132 mg/dL (0-100) VLDL Cholesterol, Calculated 26 mg/dL (0-40) Non-HDL Cholesterol Calculated 158 mg/dL (0-129) HDL Cholesterol 30 mg/dL (40-60) Cholesterol/HDL Ratio 6.3 Physical Exam HEENT: Neck Supple W Full Motion Chest: Symmetric LUNGS: Clear to Auscultation Heart: RRR Abdomen: Soft N/T Extremities: No Edema, Other (right radial arteriotomy site soft, clean, and dry. No ecchymosis or erythema. Neurovascular status intact ) Neurology: alert, oriented, follow commands Assessment Assessment 1. Inferior posterior STEMI 2. CAD; s/p PCI/IDRIS to RCA 3. Hypertension; controlled overall 4. Dyslipidemia; statin 5. Sinus bradycardia; lowest 42 overnight. Mean near 60 6. Arrhythmia; 10-beat NSVT noted overnight. Most probably reperfusion related. Mg WNL. None further 6. Tobaccoism; discussed/encouraged cessation Recommendations Secondary prevention including DAPT with ASA/Effient Statin therapy. No BB with bradycardia Echo today Risk stratification modification Cardiac rehab referral Monitor overnight and plan for discharge in am Justicifation of Admission Dx: Justifications for Admission: Justification of Admission Dx: Yes [place]: Acute STEMI HUGO GALLEGOS MD 09/06/20 2337: CARDIO Progress Notes Plan Plan Pt. seen and examined. Agree with above [employer] note. Doing well post PCI of RCA. Anticipate DC tomorrow. Echo with normal EF. MEDINA CASTELLANO APRN Sep 06, 2020 10:45 HUGO GALLEGOS MD Sep 06, 2020 23:37
--- NOTE | 2020-09-06 10:58 | NUR ---
SS following for discharge planning. SS reviewed pt chart and discussed with pt RN. Pt is from home with spouse and is currently requiring oxygen via nasal canula. COVID19 negative. Pt transferred from room 108 to 248 today. SS will continue to follow for discharge planning.
--- NOTE | 2020-09-06 13:33 | CARD ---
MR#: [id number] Date of Study: 09/05/2020 Ordering Physician: HUGO GALLEGOS, Referring Physician: HUGO GALLEGOS, Tech: RT Omar (R) APPROVED REPORT Technologist: RT Omar (R) Nurse: Gisella Aguilera R.N. Procedure(s) performed: Fluoro Time: 10.3 min Dose: 156.84 Gycm2 Contrast: 151 Visi Sedation Time: 76 minutes Left heart catheterization, coronary angiography, complex PCI of the right coronary artery, intravasc ular ultrasound of the right coronary artery HISTORY The patient is a 60 year-old male with a history of : tobacco history() , hypertension, dyslipidemia. INDICATION The indication(s) include : STEMI (>0 to less than or equal to 6 hours). [facility] Clinical Frailty Scale [facility] Clinical Frailty Scale: Managing Well Heart Failure Heart Failure: Yes If Yes, Newly Diagnosed: Yes If Yes, HF Type: Diastolic Systolic If Yes, NYHA Class: Class III CASE TECHNIQUE During this case, Fluoroscopy and low osmolar contrast were used for imaging. PROCEDURE NARRATIVE Clinical information: 60-year-old man presented to the hospital in the setting of worsening chest pain for the preceding 12 hours. Initial EKG revealed [address] elevations. He was taken emergently to the cardiac catheterization laboratory after discussion of the risks and benefits of the procedure. Procedure details: The right wrist was prepped and draped in usual sterile fashion. Under 1% lidocaine local anesthesia a 6 O[place]i sheath was placed in the right radial artery via the Seldinger technique without any diff iculty. Next, diagnostic angiography was performed with a 6 [place]i TIG catheter. Left ventricular e nd-diastolic pressure was obtained with a pigtail catheter. Findings: Aorta 130/80 LVEDP 16 mmHg Coronary angiography: Left main is a large-caliber vessel with normal angiographic appearance LAD is a large-caliber vessel with proximal 30% stenosis. D1 is a moderate caliber vessel with mild luminal irregularities Left circumflex is a large-caliber vessel with mild luminal irregularities OM1 is a large caliber vessel with a proximal 50% stenosis RCA is a large caliber dominant vessel with a distal 100% occlusion. Left ventriculogram: EF 45%, basal and diaphragmatic akinesis. Interventional technique: Heparin and tirofiban were used for anticoagulation. Through a 6 [place]i JR4 guide catheter a 0.014 i MobPanelwater wire was used to traverse the distal RCA occlusion. Balloon angioplasty was performed w ith a 3.5 x 12 mm balloon and the lesion was then stented with a 5.0 x 22 mm resolute drug-eluting st ent at nominal pressures. Post stent deployment a intravascular ultrasound was completed of the dist al vessel to ensure adequate stent expansion. The stent struts were well expanded and apposed but th ere was persistent thrombus within the stented segment. The thrombotic area was then postdilated wit h a 5 mm noncompliant balloon at 14 caterina. Final angiography revealed excellent stent expansion with T IMI-3 flow in the vessel. No evidence of guide or wire related complications were noted. At case completion the patient received prasugrel 60 mg oral loading dose. Tirofiban was continued f or 18 hours and the right radial sheath was removed and hemostasis was achieved with a Terumo radial band inflated to 11 caterina. Complications: No acute complications REBEKAH Flow REBEKAH Flow (Pre-Intervention): REBEKAH-0 REBEKAH Flow (Post-Intervention): REBEKAH-2 Conclusion 1. Acute inferior posterior ST elevation MT 2. Acute mild decompensated systolic and diastolic heart failure, EF 45%, LVEDP 16 mmHg 3. Two-vessel coronary artery disease with the culprit lesion involving the distal RCA occlusion 4. Successful IVUS guided PCI of the distal right coronary artery with implantation of a 5.0 x 22 mm resolute drug-eluting stent. Recommendations 1. Aspirin 81 mg daily 2. Prasugrel 10 mg daily 3. Cardiac rehabilitation referral and high-dose statin therapy. Signed by : Hugo Gallegos, Electronically Approved : 09/06/2020 13:33:13
--- NOTE | 2020-09-06 14:09 | CARD ---
MR#: [id number] Date of Study: 09/06/2020 Ordering Physician: HUGO GALLEGOS, Referring Physician: HUGO GALLEGOS, Tech: Viridiana Sears [facility] APPROVED REPORT EXAM: Two-dimensional and M-mode echocardiogram with Doppler and color Doppler. Other Information Quality : Technically LimitedHR: 53bpm Rhythm : NSRTechnically limited study due to body habitus. INDICATION Hypertension/HCVD CAD 2D DIMENSIONS RVDd4.0 (2.9-3.5cm)Left Atrium(2D)4.5 (1.6-4.0cm) IVSd1.2 (0.7-1.1cm)Aortic Root(2D)3.2 (2.0-3.7cm) LVDd5.2 (3.9-5.9cm)LVOT Diameter2.4 (1.8-2.4cm) PWd1.2 (0.7-1.1cm)LVDs3.1 (2.5-4.0cm) FS (%) 41.4 %SV93.4 ml LVEF(%)71.9 (>50%) Aortic Valve AoV Peak Richy.159.1cm/sAoV VTI30.4cm AO Peak GR.10.1mmHgLVOT Peak Richy.114.1cm/s AO Mean GR.5mmHgAVA (VMAX)3.11cm2 Mitral Valve MV E Ebpncvle62.3cm/sMV DECEL [id number] MV A Lshdhupp35.8cm/sE/A Ratio1.0 Pulmonary Valve PV Peak Ahrofpxe15.3cm/s LEFT VENTRICLE The left ventricle is normal size. There is borderline to mild concentric left ventricular hypertroph y. The left ventricular systolic function is normal and the ejection fraction is within normal range. Ejection fraction 60-65%. The basal to mid inferior wall is mildly hypokinetic. Transmitral Doppler flow pattern is Grade I-abnormal relaxation pattern. RIGHT VENTRICLE The right ventricle is normal size. There is normal right ventricular wall thickness. The right ventr icular systolic function is normal. ATRIA The left atrium size is normal. The right atrium size is normal. The interatrial septum is intact wit h no evidence for an atrial septal defect or patent foramen ovale as noted on 2-D or Doppler imaging. AORTIC VALVE The aortic valve is normal in structure and function. Doppler and Color Flow revealed no significant aortic regurgitation. There is no significant aortic valvular stenosis. MITRAL VALVE The mitral valve is normal in structure and function. There is no evidence of mitral valve prolapse. There is no mitral valve stenosis. Doppler and Color-flow revealed trace to mild mitral regurgitation . TRICUSPID VALVE The tricuspid valve is normal in structure and function. Doppler and Color Flow revealed no tricuspid valve regurgitation noted. There is no tricuspid valve stenosis. PULMONIC VALVE Doppler and Color Flow revealed no pulmonic valvular regurgitation. There is no pulmonic valvular rigo nosis. GREAT VESSELS The aortic root is normal in size. The ascending aorta is normal in size. IVC dialated with blunted r esponse with inspiration. PERICARDIAL EFFUSION There is no evidence of significant pericardial effusion. Critical Notification Critical Value: No <Conclusion> The left ventricular systolic function is normal and the ejection fraction is within normal range. E jection fraction 60-65%. The basal to mid inferior wall is mildly hypokinetic. Signed by : Hugo Gallegos, Electronically Approved : 09/06/2020 14:08:30
[2020-09-06] MEDS: ATORVASTATIN CALCIUM 20 MG TABLET PO SCH (23:01)
--- NOTE | 2020-09-06 23:24 | NUR ---
bp first was 199/99. then at 2330 it was 211/106. called dr russell and received orders norvasc 2.5 mg x 1. lcrn
[2020-09-06] MEDS ORDERED: amLODIPine BESYLATE 5 MG TABLET PO ONE (23:45)
[2020-09-07 03:20] VITALS: BP 163/80
[2020-09-07 07:00] VITALS: BP 156/103
[2020-09-07] MEDS: PRASUGREL 10 MG TABLET. PO SCH (08:31)
[2020-09-07] MEDS: ASPIRIN ENTERIC COATED 81 MG TABLET.DR. PO SCH (08:32)
[2020-09-07] MEDS ORDERED: LISINOPRIL 10 MG TABLET PO SCH (09:00)
--- NOTE | 2020-09-07 10:07 | NUR ---
SS following up with discharge planning. SS reviewed pt chart and discussed with pt RN. Pt is currently on room air. Pt had heart cath on 09/05/2020. COVID19 negative. Probable discharge to home today. SS will continue to follow for discharge planning.
[2020-09-07] MEDS ORDERED: ATOR20TA58 PO (10:23)
[2020-09-07] MEDS ORDERED: PRAS10TA9 PO (10:23)
[2020-09-07] MEDS ORDERED: LISI10TA2 PO (10:23)
[2020-09-07] MEDS ORDERED: ASPI-886 PO (10:23)
--- NOTE | 2020-09-07 10:26 | PDOC3 ---
Discharge Summary Visit Information Date of Admission: Sep 05, 2020 Date of Discharge: Sep 07, 2020 Admitting Diagnosis: unstable angina, STEMI Final Diagnosis 1. Inferior posterior STEMI 2. CAD; s/p PCI/IDRIS to RCA 3. Hypertension; controlled overall 4. Dyslipidemia; statin 5. Sinus bradycardia; lowest 42 overnight. Mean near 60 6. Arrhythmia; 10-beat NSVT noted overnight. Most probably reperfusion related. Mg WNL. None further 6. Tobaccoism; discussed/encouraged cessation Problems Medical Problems: (1) Chest pain Status: Acute (2) ST elevation myocardial infarction (STEMI) of inferior wall Status: Acute (3) Suspected COVID-19 virus infection Status: Acute Brief Hospital Course Allergies Allergies Coded Allergies Type Severity Reaction Last Updated Verified No Known Drug Allergies 09/05/20 No Vital Signs Vital Signs Date Time Temp Pulse Resp B/P (MAP) Pulse Ox O2 Delivery O2 Flow Rate FiO2 09/07/20 08:32 62 156/103 09/07/20 07:00 97.2 22 98 Room Air 97.2 09/06/20 14:43 Lab Results Laboratory Tests Test 09/05/20 16:40 09/05/20 16:46 09/05/20 21:15 09/05/20 23:15 White Blood Count 11.2 x10^3/uL (4.0-11.0) Red Blood Count 4.91 x10^6/uL (4.30-5.70) Hemoglobin 15.2 g/dL (13.0-17.5) Hematocrit 45.4 % (39.0-53.0) Mean Corpuscular Volume 93 fL (79-100) Mean Corpuscular Hemoglobin 31 pg (25-35) Mean Corpuscular Hemoglobin Concent 33 g/dL (31-37) Red Cell Distribution Width 13.4 % (11.5-14.5) Platelet Count 234 x10^3/uL (140-400) Neutrophils (%) (Auto) 68 % (31-73) Lymphocytes (%) (Auto) 22 % (24-48) Monocytes (%) (Auto) 7 % (0-9) Eosinophils (%) (Auto) 4 % (0-3) Basophils (%) (Auto) 0 % (0-3) Neutrophils # (Auto) 7.6 x10^3/uL (1.8-7.7) Lymphocytes # (Auto) 2.4 x10^3/uL (1.0-4.8) Monocytes # (Auto) 0.8 x10^3/uL (0.0-1.1) Eosinophils # (Auto) 0.4 x10^3/uL (0.0-0.7) Basophils # (Auto) 0.0 x10^3/uL (0.0-0.2) Prothrombin Time 12.5 SEC (11.7-14.0) Prothromb Time International Ratio 1.0 (0.8-1.1) Activated Partial Thromboplast Time 29 SEC (24-38) Sodium Level 140 mmol/L (136-145) Potassium Level 4.0 mmol/L (3.5-5.1) Chloride Level 104 mmol/L (98-107) Carbon Dioxide Level 28 mmol/L (21-32) Anion Gap 8 (6-14) Blood Urea Nitrogen 19 mg/dL (8-26) Creatinine 0.9 mg/dL (0.7-1.3) Estimated GFR (Cockcroft-Gault) 85.5 BUN/Creatinine Ratio 21 (6-20) Glucose Level 125 mg/dL (70-99) Calcium Level 9.2 mg/dL (8.5-10.1) Total Bilirubin 0.3 mg/dL (0.2-1.0) Aspartate Amino Transf (AST/SGOT) 19 U/L (15-37) Alanine Aminotransferase (ALT/SGPT) 25 U/L (16-63) Alkaline Phosphatase 103 U/L (46-116) Troponin I Quantitative 0.091 ng/mL (0.000-0.055) 6.421 ng/mL (0.000-0.055) 16.700 ng/mL (0.000-0.055) SB-Niu-Z-Type Natriuretic Peptide 76 pg/mL (0-124) Total Protein 7.1 g/dL (6.4-8.2) Albumin 3.6 g/dL (3.4-5.0) Albumin/Globulin Ratio 1.0 (1.0-1.7) Coronavirus (PCR) Not detected (Not Detected) SARS-CoV-2 Antigen (Rapid) Negative (NEGATIVE) Bedside Troponin I 0.06 ng/ml (<0.08) Lactic Acid Level 1.5 mmol/L (0.4-2.0) Test 09/06/20 05:00 White Blood Count 9.4 x10^3/uL (4.0-11.0) Red Blood Count 4.43 x10^6/uL (4.30-5.70) Hemoglobin 13.7 g/dL (13.0-17.5) Hematocrit 41.0 % (39.0-53.0) Mean Corpuscular Volume 93 fL (79-100) Mean Corpuscular Hemoglobin 31 pg (25-35) Mean Corpuscular Hemoglobin Concent 33 g/dL (31-37) Red Cell Distribution Width 13.4 % (11.5-14.5) Platelet Count 203 x10^3/uL (140-400) Neutrophils (%) (Auto) 72 % (31-73) Lymphocytes (%) (Auto) 17 % (24-48) Monocytes (%) (Auto) 8 % (0-9) Eosinophils (%) (Auto) 2 % (0-3) Basophils (%) (Auto) 1 % (0-3) Neutrophils # (Auto) 6.8 x10^3/uL (1.8-7.7) Lymphocytes # (Auto) 1.6 x10^3/uL (1.0-4.8) Monocytes # (Auto) 0.8 x10^3/uL (0.0-1.1) Eosinophils # (Auto) 0.1 x10^3/uL (0.0-0.7) Basophils # (Auto) 0.1 x10^3/uL (0.0-0.2) Sodium Level 140 mmol/L (136-145) Potassium Level 4.5 mmol/L (3.5-5.1) Chloride Level 105 mmol/L (98-107) Carbon Dioxide Level 30 mmol/L (21-32) Anion Gap 5 (6-14) Blood Urea Nitrogen 17 mg/dL (8-26) Creatinine 0.9 mg/dL (0.7-1.3) Estimated GFR (Cockcroft-Gault) 85.5 Glucose Level 116 mg/dL (70-99) Calcium Level 8.4 mg/dL (8.5-10.1) Phosphorus Level 3.7 mg/dL (2.6-4.7) Magnesium Level 2.1 mg/dL (1.8-2.4) Total Bilirubin 0.4 mg/dL (0.2-1.0) Direct Bilirubin 0.1 mg/dL (0.0-0.2) Aspartate Amino Transf (AST/SGOT) 64 U/L (15-37) Alanine Aminotransferase (ALT/SGPT) 27 U/L (16-63) Alkaline Phosphatase 86 U/L (46-116) Troponin I Quantitative 21.553 ng/mL (0.000-0.055) Total Protein 6.3 g/dL (6.4-8.2) Albumin 3.1 g/dL (3.4-5.0) Triglycerides Level 130 mg/dL (0-150) Cholesterol Level 188 mg/dL (0-200) LDL Cholesterol, Calculated 132 mg/dL (0-100) VLDL Cholesterol, Calculated 26 mg/dL (0-40) Non-HDL Cholesterol Calculated 158 mg/dL (0-129) HDL Cholesterol 30 mg/dL (40-60) Cholesterol/HDL Ratio 6.3 Thyroid Stimulating Hormone (TSH) 0.510 uIU/mL (0.358-3.74) Brief Hospital Course Mr. 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 No BB with bradycardia Echo showed good EF Discharge Information Condition at Discharge: Improved Follow Up: Weeks Disposition/Orders: D/C to Home Scheduled Aspirin (Aspirin Ec) 81 Mg Tablet., 81 MG PO [id number] for cardiac, #120 Prescribed by: ETIENNE DU on 09/07/20 1023 Atorvastatin Calcium (Atorvastatin Calcium) 20 Mg Tablet, 40 MG PO QHS for cholesterol, #30 Ref 1 Prescribed by: ETIENNE DU on 09/07/20 1023 Lisinopril (Lisinopril) 10 Mg Tablet, 10 MG PO DAILY for hypertension, #30 Ref 1 Prescribed by: ETIENNE DU on 09/07/20 1023 Prasugrel Hcl (Effient) 10 Mg Tablet, 10 MG PO [id number] for cardiac stent, #30 Ref 6 Prescribed by: ETIENNE DU on 09/07/20 1023 Patient Instructions Patient Instructions face to face discussed Justicifation of Admission Dx: Justifications for Admission: Justification of Admission Dx: Yes [place]: Acute STEMI ETIENNE DU MD Sep 07, 2020 10:26
[2020-09-07 11:00] VITALS: BP 173/96
--- NOTE | 2020-09-07 11:27 | PDOC ---
MEDINA CASTELLANO APRN 09/07/20 1127: CARDIO Progress Notes Date and Time Date of Service 09/07/20 Time of Evaluation 1115 Subjective Subjective: No Chest Pain, No shortness of breath, No Palpitations Vitals Vitals Vital Signs Date Time Temp Pulse Resp B/P (MAP) Pulse Ox O2 Delivery O2 Flow Rate FiO2 09/07/20 11:00 97.2 67 22 173/96 (121) 98 Room Air 97.2 09/06/20 14:43 Weight Weight [ ] Input and Output Intake and Output Intake and Output 09/07/20 07:00 Intake Total 1705 ml Output Total 1450 ml Balance 255 ml Intake Oral 1605 ml IV Total 100 ml Output Urine Total 1450 ml Microbiology Micro Microbiology 09/05/20 Blood Culture - Preliminary, Resulted NO GROWTH AFTER 1 DAY Physical Exam HEENT: Neck Supple W Full Motion Chest: Symmetric LUNGS: Clear to Auscultation Heart: RRR Abdomen: Soft N/T Extremities: No Edema, Other (right radial arteriotomy site soft, clean, and dry. No ecchymosis or erythema. Neurovascular status intact ) Neurology: alert, oriented, follow commands Assessment Assessment 1. Inferior posterior STEMI 2. CAD; s/p PCI/IDRIS to RCA. Echo with preserved LV systolic function 3. Hypertension; mildly elevated 4. Dyslipidemia; statin 5. Sinus bradycardia; lowest 42 overnight. Mean near 60 6. Arrhythmia; 10-beat NSVT noted overnight. Most probably reperfusion related. Mg WNL. None further 6. Tobaccoism; reinforced cessation Recommendations Secondary prevention including DAPT with ASA/Effient Statin therapy, ACEi. No BB with bradycardia Risk stratification modification Cardiac rehab referral Okay to discharge from a CV standpoint Home BP monitoring. To notify our office if SBP consistently > 160. Follow up with Dr. Rodriguez as scheduled Justicifation of Admission Dx: Justifications for Admission: Justification of Admission Dx: Yes [place]: Acute STEMI HUGO RODRIGUEZ MD 09/07/202027: CARDIO Progress Notes Plan Plan Patient seen and examined. Agree with above nurse practitioner note. Supportive care. Follow-up in the office. Discussed importance of medication compliance and smoking cessation. MEDINA CASTELLANO APRN Sep 07, 2020 11:27 HUGO RODRIGUEZ MD Sep 07, 2020 20:28
--- NOTE | 2020-09-07 12:55 | NUR ---
DISCHARGED PATIENT TO HOME. DISCHARGE INSTRUCTIONS GIVEN. PIV AND HEART MONITOR REMOVED. ESCORTED PATIENT OFF UNIT PER WHEELCHAIR INTO A PRIVATE VEHICLE.
== END 2020-09-07 12:55 | disposition home or self-care (01) | DRG 246 ==
LOC: ER 16:24 → 1 WEST ICU 17:00 → 2 SOUTH 09-06 10:25
PROVIDERS: ADMIT Internal Medicine; ATTEND Internal Medicine
PROC: 027034Z Dilation of Coronary Artery, One Artery with Drug-eluting Intraluminal Device, Percutaneous Approach (ICD-10-PCS; principal; 2020-09-05)
PROC: 4A023N7 Measurement of Cardiac Sampling and Pressure, Left Heart, Percutaneous Approach (ICD-10-PCS; 2020-09-05)
PROC: B2111ZZ Fluoroscopy of Multiple Coronary Arteries using Low Osmolar Contrast (ICD-10-PCS; 2020-09-05)
DX: I21.19 ST elevation (STEMI) myocardial infarction involving other coronary artery of inferior wall (principal); I50.41 Acute combined systolic (congestive) and diastolic (congestive) heart failure; I47.2 Ventricular tachycardia; I25.110 Atherosclerotic heart disease of native coronary artery with unstable angina pectoris; Z20.828 Contact with and (suspected) exposure to other viral communicable diseases; L40.9 Psoriasis, unspecified; E78.00 Pure hypercholesterolemia, unspecified; E78.5 Hyperlipidemia, unspecified; F17.200 Nicotine dependence, unspecified, uncomplicated; I11.0 Hypertensive heart disease with heart failure; I25.2 Old myocardial infarction; Z98.61 Coronary angioplasty status
CPT/HCPCS: 36415; 37252; 71045; 80048; 80053; 80061; 80076; 83605; 83735; 83880; 84100; 84443; 84484; 85025; 85610; 85730; 87040; 87426; 92941; 93005; 93306; 93458; 99152; 99153; 99406; C1725; C1753; C1769; C1874; C1887; C1892; J0461; J1265; J1644; J2250; J2370; J2405; J3010; J3490; J7030; Q9956; U0003; G0378; J3246

== ENCOUNTER → 2021-10-07 | Outpatient (CLI) | payer OTHER ==
[~2021-10-07] MED LIST changes: +ASPI-886 PO; +ATOR20TA58 PO; +LISI10TA16 PO; -MORPHINE SULFATE 4 MG/ML VIAL. IV PRN; +PRAS10TA9 PO
--- NOTE | 2021-10-07 12:33 | CARD ---
MR#: [id number] Date of Study: 10/07/2021 Ordering Physician: HUGO GALLEGOS, Referring Physician: HUGO GALLEGOS, Tech: Viridiana Sears [facility] APPROVED REPORT EXAM: Two-dimensional and M-mode echocardiogram with Doppler and color Doppler. Other Information Quality : AverageHR: 65bpm Rhythm : NSR INDICATION Cardiac Disease: CAD RISK FACTORS Hypertension Obesity Hyperlipidemia 2D DIMENSIONS RVDd3.9 (2.9-3.5cm)Left Atrium(2D)4.0 (1.6-4.0cm) IVSd0.9 (0.7-1.1cm)Aortic Root(2D)3.5 (2.0-3.7cm) LVDd5.0 (3.9-5.9cm)LVOT Diameter2.5 (1.8-2.4cm) PWd1.0 (0.7-1.1cm)LVDs3.2 (2.5-4.0cm) FS (%) 35.2 %SV75.1 ml Aortic Valve AoV Peak Richy.133.9cm/sAoV VTI27.8cm AO Peak GR.7.2mmHgLVOT Peak Richy.117.3cm/s AO Mean GR.4mmHgAVA (VMAX)4.43cm2 Mitral Valve MV E Wyfqkjro46.5cm/sMV DECEL [id number] MV A Pjnawnxb67.9cm/sE/A Ratio1.0 Pulmonary Valve PV Peak Sqwgunpf473.1cm/s LEFT VENTRICLE The left ventricle is normal size. There is normal left ventricular wall thickness. The left ventricu lar systolic function is normal and the ejection fraction is within normal range. LV ejection fractio n of 55 to 60%. There is normal LV segmental wall motion. Transmitral Doppler flow pattern is Grade I -abnormal relaxation pattern. RIGHT VENTRICLE The right ventricle is normal size. There is normal right ventricular wall thickness. The right ventr icular systolic function is normal. ATRIA The left atrium size is normal. The right atrium size is normal. The interatrial septum is intact wit h no evidence for an atrial septal defect or patent foramen ovale as noted on 2-D or Doppler imaging. AORTIC VALVE The aortic valve is normal in structure and function. Doppler and Color Flow revealed no significant aortic regurgitation. There is no significant aortic valvular stenosis. MITRAL VALVE The mitral valve is normal in structure and function. There is no evidence of mitral valve prolapse. There is no mitral valve stenosis. Doppler and Color-flow revealed trace mitral regurgitation. TRICUSPID VALVE The tricuspid valve is normal in structure and function. Doppler and Color Flow revealed no tricuspid valve regurgitation noted. There is no tricuspid valve stenosis. PULMONIC VALVE The pulmonary valve is normal in structure and function. Doppler and Color Flow revealed no pulmonic valvular regurgitation. GREAT VESSELS The aortic root is normal in size. The ascending aorta is normal in size. The IVC is normal in size a nd collapses >50% with inspiration. PERICARDIAL EFFUSION There is no evidence of significant pericardial effusion. Critical Notification Critical Value: No <Conclusion> The left ventricle is normal size. The left ventricular systolic function is normal and the ejection fraction is within normal range. LV ejection fraction of 55 to 60%. Doppler and Color Flow revealed no significant aortic regurgitation. There is no significant aortic valvular stenosis. Doppler and Color-flow revealed trace mitral regurgitation. Doppler and Color Flow revealed no tricuspid valve regurgitation noted. Signed by : Akash Almanzar MD Electronically Approved : 10/07/2021 12:32:42
== END ==
LOC: ECHO 09:36
PROVIDERS: ATTEND Internal Medicine Cardiovascular Disease
DX: I25.10 Atherosclerotic heart disease of native coronary artery without angina pectoris (principal)
CPT/HCPCS: 93306; C8929